=== PATIENT | male | born 1955 | race Caucasian/White ===

== ENCOUNTER → 2016-07-09 | Day surgery (SDC) | payer OTHER ==
[2016-07-07 14:58] LABS: HCT 42.5 % (42.0-52.0); HGB 15.4 g/dl (13.2-18.0); MCH 31.8 pg (25.0-31.0); MCHC 36.2 g/dL (32.0-36.0); MCV 87.6 fL (78.0-100.0); MPV 10.7 fL (6.0-9.5); RBC 4.85 M/uL (4.70-6.00); RDW 13.6 % (11.5-14.0); WBC 6.3 K/uL (4.0-10.5)
[2016-07-07 15:21] LABS: ALBUMIN 4.1 g/dL (3.4-4.8); BILIRUBIN - TOTAL 0.7 mg/dL (0.1-1.0); CREATININE 1.5 mg/dL (0.7-1.2); GLOBULIN (CALCULATION) 2.7 g/dL (2.2-4.2); POTASSIUM 3.5 mmol/L (3.5-5.1); TOTAL PROTEIN 6.8 g/dL (6.4-8.3)
[~2016-07-09] MED LIST: AGGRENOX PO; COREG25 MG PO; HYDRALAZINE25 MG PO; IMDUR 30MG TABL30 MG PO; LIPITOR40 MG PO; PLAVIX75 MG PO; PROCARDIA XL60 MG PO; VITAMIN B-121000 MC1 PO; ZOLOFT25 MG PO
== END | disposition home or self-care (01) ==
LOC: FAS 06:31
PROVIDERS: Surgery
DX: K43.0 Incisional hernia with obstruction, without gangrene (principal); K21.9 Gastro-esophageal reflux disease without esophagitis; K44.9 Diaphragmatic hernia without obstruction or gangrene; I10 Essential (primary) hypertension; M19.90 Unspecified osteoarthritis, unspecified site; Z86.73 Personal history of transient ischemic attack (TIA), and cerebral infarction without residual deficits; Z88.0 Allergy status to penicillin; Z79.02 Long term (current) use of antithrombotics/antiplatelets; Z79.899 Other long term (current) drug therapy; Z90.49 Acquired absence of other specified parts of digestive tract; Z98.890 Other specified postprocedural states
CPT/HCPCS: 36415; 80053; C1781; J1170; J2704; J2710; J3010

== ENCOUNTER 2016-10-04 23:58 | Day surgery (SDCO) | payer OTHER ==
[~2016-10-04] VITALS: Ht 167.6 cm; Wt 91.3 kg
[~2016-10-04 23:58] MED LIST changes: -COREG25 MG PO; -HYDRALAZINE25 MG PO; -IMDUR 30MG TABL30 MG PO; -LIPITOR40 MG PO; -PLAVIX75 MG PO; -PROCARDIA XL60 MG PO; -VITAMIN B-121000 MC1 PO; -ZOLOFT25 MG PO
[2016-10-05 00:48] LABS: BASOPHIL 1.4 % (0-2); EOSINOPHIL 3.4 % (0-5); HCT 39.1 % (42.0-52.0); HGB 14.4 g/dl (13.2-18.0); LYMPHOCYTE 20.9 % (15-48); MCHC 36.8 g/dL (32.0-36.0); MCV 86.9 fL (78.0-100.0); MONOCYTE 10.5 % (0-12); MPV 10.7 fL (6.0-9.5); NEUTROPHIL 63.8 % (41-80); PLT 122 K/uL (150-400); RDW 13.4 % (11.5-14.0)
[2016-10-05 01:05] LABS: ALBUMIN 4.1 g/dL (3.4-4.8); BILIRUBIN - TOTAL 1.2 mg/dL (0.1-1.0); CREATININE 3.2 mg/dL (0.7-1.2); GLOBULIN (CALCULATION) 2.6 g/dL (2.2-4.2); POTASSIUM 3.4 mmol/L (3.5-5.1); TOTAL PROTEIN 6.7 g/dL (6.4-8.3)
[2016-10-05 04:47] LABS: BILIRUBIN NEGATIVE (NEGATIVE); BLOOD TRACE-INTACT Ery/uL (NEGATIVE); CLARITY CLEAR (CLEAR); COLOR YELLOW (YELLOW); GLUCOSE (U) NORMAL (NORMAL); KETONE (U) NEGATIVE (NEGATIVE); LEUKOCYTES NEGATIVE Leu/uL (NEGATIVE); NITRITE NEGATIVE (NEGATIVE); PROTEIN NEGATIVE (NEGATIVE); UROBILINOGEN 0.2 mg/dL (0.2-1.0)
[2016-10-05 04:52] LABS: BACTERIA TRACE; MUCOUS LARGE; SQUAMOUS EPITHELIAL CELLS RARE
[2016-10-05 04:56] LABS: AMPHETAMINES NEGATIVE (NEGATIVE); BARBITURATES NEGATIVE (NEGATIVE); BENZODIAZEPINES NEGATIVE (NEGATIVE); COCAINE NEGATIVE (NEGATIVE); MARIJUANA (THC) NEGATIVE (NEGATIVE); METHADONE NEGATIVE (NEGATIVE); TRICYCLIC ANTIDEPRESSANT NEGATIVE (NEGATIVE)
[2016-10-05 06:46] LABS: BASOPHIL 0.6 % (0-2); EOSINOPHIL 3.6 % (0-5); HCT 36.9 % (42.0-52.0); HGB 13.4 g/dl (13.2-18.0); LYMPHOCYTE 27.4 % (15-48); MCH 31.8 pg (25.0-31.0); MCHC 36.3 g/dL (32.0-36.0); MCV 87.4 fL (78.0-100.0); MONOCYTE 13.5 % (0-12); NEUTROPHIL 54.9 % (41-80); PLT 106 K/uL (150-400); RBC 4.22 M/uL (4.70-6.00); RDW 13.5 % (11.5-14.0); WBC 4.7 K/uL (4.0-10.5)
[2016-10-05 06:59] LABS: CREATININE 2.2 mg/dL (0.7-1.2); POTASSIUM 3.8 mmol/L (3.5-5.1)
[2016-10-05 07:47] LABS: URINE CREATININE 86.2 mg/dL (40-278)
[2016-10-05 07:53] LABS: URINE POTASSIUM 12.76 mmol/L
[2016-10-06 03:47] LABS: CREATININE 1.3 mg/dL (0.7-1.2)
[2016-10-06] MEDS ORDERED: PLAVIX75 MG PO (09:55)
[2016-10-06] MEDS ORDERED: ZOLOFT25 MG PO (10:13)
[2016-10-06] MEDS ORDERED: PROCARDIA XL60 MG PO (10:20)
[2016-10-06] MEDS ORDERED: IMDUR 30MG TABL30 MG PO (10:20)
[2016-10-06] MEDS ORDERED: LIPITOR40 MG PO (10:21)
[2016-10-06] MEDS ORDERED: COREG25 MG PO (10:21)
[2017-01-06] MEDS ORDERED: HYDRALAZINE25 MG PO (14:23)
[2017-01-06] MEDS ORDERED: VITAMIN B-121000 MC1 PO (14:24)
== END 2016-10-06 12:00 | disposition home or self-care (01) ==
LOC: FER 23:58 → FMS 10-05 04:30
PROVIDERS: Emergency Medicine Emergency Medical Services; Hospitalist; ADMIT Internal Medicine
DX: N17.9 Acute kidney failure, unspecified (principal); E86.9 Volume depletion, unspecified; I12.9 Hypertensive chronic kidney disease with stage 1 through stage 4 chronic kidney disease, or unspecified chronic kidney disease; N18.3 Chronic kidney disease, stage 3 (moderate); N28.1 Cyst of kidney, acquired; E78.5 Hyperlipidemia, unspecified; K21.9 Gastro-esophageal reflux disease without esophagitis; R19.7 Diarrhea, unspecified; Z86.73 Personal history of transient ischemic attack (TIA), and cerebral infarction without residual deficits; Z90.49 Acquired absence of other specified parts of digestive tract; Z23 Encounter for immunization; Z88.0 Allergy status to penicillin; Z91.013 Allergy to seafood
CPT/HCPCS: 36415; 70450; 71010; 76770; 80048; 80053; 80305; 81001; 82550; 82553; 82570; 84133; 84300; 84484; 85025; 90732; 93005; 94010; G0378; J1885